=== PATIENT | male | born 1955 | race Asian ===

== ENCOUNTER 2017-01-21 12:10 | Outpatient (CLI) | payer OTHER | END 2017-01-21 19:33 | disposition home or self-care (01) | LOC: MRI 12:10 | DX: M51.17 Intervertebral disc disorders with radiculopathy, lumbosacral region (principal) ==

== ENCOUNTER 2017-05-20 11:31 | Emergency (ER) | payer OTHER ==
[~2017-05-20] VITALS: Ht 185.4 cm; Wt 91.6 kg
[2017-05-20 12:23] VITALS: BP 109/78; TEMP 98.2
== END 2017-05-20 12:24 | disposition home or self-care (01) ==
LOC: ED 11:31
DX: F32.89 Other specified depressive episodes (principal)

== ENCOUNTER 2017-12-24 13:54 | Outpatient (CLI) | payer OTHER | END 2017-12-24 23:32 | disposition home or self-care (01) | LOC: RAD 13:54 | DX: M25.522 Pain in left elbow (principal) ==

== ENCOUNTER 2020-05-10 09:56 | Emergency (ER) | payer OTHER ==
[~2020-05-10] VITALS: Ht 185.4 cm; Wt 104.3 kg
[2020-05-10 10:29] LABS: PLATELET COUNT 211 K/uL (142-355)
[2020-05-10 10:37] LABS: POTASSIUM 4.3 mmol/L (3.6-5.2); SODIUM 134 mmol/L (136-145)
[2020-05-10 10:56] LABS: PARTIAL THROMBOPLASTIN TIME 24.5 SECONDS (24.5-33.6)
[2020-05-10 14:27] VITALS: BP 120/79; TEMP 98.5
== END 2020-05-10 14:27 | disposition home or self-care (01) ==
LOC: ED 09:56
PROVIDERS: Hospitalist
DX: R25.2 Cramp and spasm (principal); R19.7 Diarrhea, unspecified; K52.89 Other specified noninfective gastroenteritis and colitis; R11.2 Nausea with vomiting, unspecified; R10.84 Generalized abdominal pain
CPT/HCPCS: 80053; 82550; 82553; 83880; 84484; 85027; 85610; 85730; 93005; 96365; 96366; 96375; 99284; J1956; J2360; J2405

== ENCOUNTER 2020-08-08 10:29 | Outpatient (CLI) | payer OTHER | END 2020-08-08 19:38 | disposition home or self-care (01) | LOC: MRI 10:29 | PROVIDERS: ATTEND Neurological Surgery | DX: M54.12 Radiculopathy, cervical region (principal) ==

== ENCOUNTER 2020-08-29 14:00 | Outpatient (CLI) | payer OTHER | END 2020-08-29 20:50 | disposition home or self-care (01) | LOC: MRI 14:00 | PROVIDERS: ATTEND Neurological Surgery | DX: M54.16 Radiculopathy, lumbar region (principal) ==

== ENCOUNTER 2020-10-05 16:33 | Outpatient (CLI) | payer OTHER | END 2020-10-05 20:00 | disposition home or self-care (01) | LOC: RAD 16:33 | PROVIDERS: ATTEND Internal Medicine | DX: Z01.810 Encounter for preprocedural cardiovascular examination (principal); Z01.811 Encounter for preprocedural respiratory examination ==

== ENCOUNTER 2021-01-04 12:49 | Outpatient (CLI) | payer OTHER | END 2021-01-04 21:06 | disposition home or self-care (01) | LOC: RAD 12:49 | PROVIDERS: ATTEND Neurological Surgery | DX: M54.12 Radiculopathy, cervical region (principal) ==

== ENCOUNTER 2021-12-04 07:51 | Outpatient (CLI) | payer OTHER | END 2021-12-04 19:09 | disposition home or self-care (01) | LOC: CT 07:51 | PROVIDERS: ATTEND Internal Medicine | DX: Z09 Encounter for follow-up examination after completed treatment for conditions other than malignant neoplasm (principal); Z87.09 Personal history of other diseases of the respiratory system; Z95.5 Presence of coronary angioplasty implant and graft; E11.9 Type 2 diabetes mellitus without complications | CPT/HCPCS: 36415; 82565; 84520; Q9963 ==

== ENCOUNTER 2023-03-04 15:19 | Outpatient (CLI) | payer OTHER | END 2023-03-04 20:49 | disposition home or self-care (01) | LOC: RAD 15:19 | PROVIDERS: ATTEND Internal Medicine | DX: M25.561 Pain in right knee (principal) ==